=== PATIENT | female | born 1980 | race Caucasian/White ===

== ENCOUNTER → 2022-05-13 | Outpatient (CLI) | payer BC ==
--- NOTE | 2022-05-13 19:28 | US ---
EXAMINATION TYPE: US axilla LT DATE OF EXAM: 05/13/2022 COMPARISON: NONE CLINICAL HISTORY: R22.32 MASS AND LUMP, LEFT UPPER LIMB. Left axilla palpable x 1 month. Patient sta irma some where in the left axilla she had a cyst removed x 20 years ago. FINDINGS: Area of concern scanned. Subdermal lesion seen, nonvascular = 0.5 x 0.6 x 0.2 cm . This is heterogen eously hypoechoic IMPRESSION: Subdermal 0.6 cm nonvascular lesion corresponding to patient's palpable abnormality. Thi s may represent a sebaceous cyst versus pilomatricoma. Clinical correlation is recommended.
== END | disposition home or self-care (01) ==
LOC: RADUSWWP 15:53
PROVIDERS: ATTEND Obstetrics & Gynecology Obstetrics
DX: R22.32 Localized swelling, mass and lump, left upper limb (principal)

== ENCOUNTER → 2022-06-18 | Outpatient (CLI) | payer BC ==
--- NOTE | 2022-06-18 15:24 | FL ---
EXAMINATION TYPE: FL hysterosalpingography DATE OF EXAM: 06/18/2022 HISTORY: TUBES TIED 2007, CLAMPS MIGRATED, HX OF ABLASION FL TIME 1:16/ ISOVUE M300 Informed consent was obtained and all the patient's questions were answered. Preliminary demonstrates one of the patient's tubal ligation clips to reside at the L3 level on the right. In addition there is a second clip which is adjacent to the cervix on the right. This clip is also not at the tubal lev el. A speculum was introduced and the external cervical os was localize. The external cervical os was cl eansed and a Betadine solution on 3 occasions. Hysterosalpingography catheter was introduced into th e uterus and balloon insufflation device deployed. Approximately 12 cc of nonionic contrast was inje cted in a retrograde manner. The uterus demonstrates incomplete bicornuate appearance. There is contrast filling of both fallopian tubes to its midportion on the left and to its mid to distal portion on the right. There is no evide nce for contrast extravasation from both fallopian tubes indicating underlying tubal occlusion bilate rally. There is however intravasation of contrast within the myometrial vessels (mostly veins) right greater than left. There is a large cluster of draining pelvic veins within the right hemipelvis at t he level of the displaced right hemipelvic clip. Underlying vascular malformation is not excluded. Co nsider further evaluation with MRI. IMPRESSION: 1. Both right and left tubal ligation clips are displaced and not in their expected locations. Bilate ral tubal occlusion noted however. 2. As noted there is intravasation of contrast within the myometrial vessels however within the right hemipelvis there is a large cluster of enhancement which is not felt to reflect extravasation from t he right fallopian tube but rather may reflect a vascular malformation. Further evaluation with MRI i s advised.
== END | disposition home or self-care (01) ==
LOC: RADUSWWP 13:34
PROVIDERS: ATTEND Obstetrics & Gynecology Obstetrics
DX: N97.1 Female infertility of tubal origin (principal)
CPT/HCPCS: 58340; 74740; Q9967

== ENCOUNTER → 2022-08-05 | Outpatient (CLI) | payer BC ==
[2022-08-05 10:53] VITALS: BP 136/92; PULSE 84; RESP 18; TEMP 98.1
--- NOTE | 2022-08-05 14:32 | P.PAINPG ---
PQRS Measure Charge Sheet Comment: HISTORY OF PRESENT ILLNESS: 41 yr old female as a referral from Dr Bradley presents today w severe and chronic LBP x 10 mo secondary to for evaluation. Pt states pain level is at 8 /10 in intensity, constant, localized in the R lower lumbar spine where it meets the tailbone, achy/ sore in character w shooting pain towards the RLE and R foot. Pain is provoked by lifting, bending or in one position for periods of 2 hrs or more. Pain is alleviated by chiropractic treatments semi weekly and now semi monthly, meds (Cymbalta), +THC products, heat, home exercise regimen, repositioning and rest. PMH: OA PSH: LESIs (2021), Breast Reduction (2021), Umbilical Hernia Repair (2013), Tubal Ligation (2007), Addenoidectomy/ Tonsillectomy SH: Hx of tobacco use, Rare ETOH use, No illicit drug use FH: Fa- CAD. All: See list Meds: See list REVIEW OF ORGAN SYSTEMS: CONSTITUTIONAL: No fevers or chills. No recent weight loss. NEUROLOGICAL: + numbness and tingling along the distal extremities. No seizure disorders or headaches. MUSCULOSKELETAL: + pain PSYCHIATRIC: Denies current depression or suicidal thoughts. Physical Examinations : Constitutional : Cooperative , not in acute distress . Neurologic : Cranial nerve II to XII intact. No focal neurological deficits. Psychiatric : alert & oriented x 3. Matching mood & appropriate affect. Judgment & insight intact. Musculoskeletal : Cervical Spine Motor strength in the deltoid and biceps: Normal right side. Normal Left side Motor strength biceps and the wrist extensors: Normal right side . Normal left side Motor strength in the triceps muscle: Normal right side. Normal left side Deep tendon reflexes: Normal at the biceps. Normal at Brachioradialis. Normal at triceps Vertebral body tenderness to deep palpation over Cervical facet loading test: positive bilaterally Spurling test: positive bilaterally Neck distraction test: positive bilaterally Angelica sign: positive bilaterally Lumbar spine Motor strength lower extremities ,thigh and legs 5/5 Right side , 5/5 Left side Deep tendon reflexes : Normal Knee Jerk. Normal Ankle Jerk Vertebral body tenderness over L5 Lumbar facet Loading Test: positive Right / positive Left Range of motion of the lumbar spine Flexion 30 degrees, extension 10 degrees Straight Leg Raise test: Left/ Right positive at degree Vanessa test: positive right / positive left. Severe tenderness over the Sacroiliac joint on the Right / Left sides Gaenslen test: positive bilaterally Seated flexion test: positive bilaterally. Sacral spine : Severe tenderness over the Sacroiliac joint: right side / left side Range of motion: Flexion of the lumbar spine <60 degrees Range of motion: Extension of the lumbar spine <20 degrees Gaenslen's Test positive Bry's Test positive Vanessa test: positive right side / left side Thigh Thrust Test Sacral Thrust Test Imaging: MRI without contrast of the lumbar spine from 10/22/21 reviewed Assessment/ Plan : Lumbar DDD Recommendation of R TFESI L5-S1. May need a series, up to 3 within a 6mo period, for optimal pain relief. Risks, benefits of procedure discussed and patient verbalized understanding. Denies aspirin or anti- coagulant use or medical history of diabetes. Protocol for discontinuation/ continuation of medications thea procedure discussed. All questions answered. I have spent greater than 30 minutes on patient care today. Dr Allen was available by phone for the evaluation of this patient. The time was used to review the medical records including relevant urine studies and Prescription history (MAPs), review of the available imaging, evaluation and examination of the patient, coordination of care with the medical staff and if applicable referring physicians, as well as creation of the medical record Controlled Substance Measures - Controlled Substance Measures Is patient prescribed a controlled substance at discharge?: No
== END ==
LOC: PNWHC3 08-02 09:57
PROVIDERS: ATTEND Specialist
DX: M51.36 Other intervertebral disc degeneration, lumbar region (principal); M19.90 Unspecified osteoarthritis, unspecified site
CPT/HCPCS: 99211

== ENCOUNTER → 2022-09-06 | Outpatient (CLI) | payer BC ==
[2022-09-06 23:05] LABS: Basophils # (A) 0.05 X 10*3/uL (0.00-0.10); Basophils % (A) 0.7 %; Eosinophils # (A) 0.17 X 10*3/uL (0.04-0.35); Eosinophils % (A) 2.2 %; HCT 39.3 % (37.2-46.3); HGB 12.3 g/dL (12.0-15.0); Immature Grans, Automated 0.1 %; Lymphocytes # (A) 2.73 X 10*3/uL (0.90-5.00); Lymphocytes % (A) 35.9 %; MCH 28.4 pg (27.0-32.0); MCHC 31.3 g/dL (32.0-37.0); MCV 90.8 fL (80.0-97.0); Monocytes # (A) 0.39 X 10*3/uL (0.20-1.00); Monocytes % (A) 5.1 %; NRBC Per 100 WBC 0 /100 WBCS (0.0-0.0); Neutrophils # (A) 4.25 X 10*3/uL (1.80-7.70); Platelet Count 322 X 10*3/uL (140-440); RBC 4.33 X 10*6/uL (4.10-5.20); RDW 13.3 % (11.5-14.5)
[2022-09-06 23:30] LABS: Appearance,Urine Cloudy (Clear); Bilirubin,Urine Negative (Negative); Blood,Urine Moderate (Negative); Color,Urine Yellow (Yellow); Ketones,Urine Trace mg/dL (Negative); Nitrite,Urine Positive (Negative); PH, Urine 5.5 (5.0-8.0); Specific Gravity,Urine >1.035 (1.001-1.030); Urobilinogen,Urine 0.2 (0.2,1.0)
[2022-09-06 23:53] LABS: Bacteria,Urine 4+ /HPF (None Seen)
[2022-09-06 23:59] LABS: African American GFR (CKD) 129.4 (60.0-200.0); Anion Gap 12.2 mmol/L (10.00-18.00); Blood Urea Nitrogen 7.8 mg/dL (9.0-27.0); Carbon Dioxide 26.4 mmol/L (20.0-27.5); Non-African American GFR(CKD) 111.7 (60.0-200.0); Potassium 3.7 mmol/L (3.5-5.5)
== END | disposition home or self-care (01) ==
LOC: LABPAT 14:27
PROVIDERS: ATTEND Obstetrics & Gynecology Obstetrics
DX: Z01.812 Encounter for preprocedural laboratory examination (principal); N92.0 Excessive and frequent menstruation with regular cycle
CPT/HCPCS: 80051; 81001; 82565; 82947; 84520; 85025; 87086

== ENCOUNTER → 2022-09-09 | Day surgery (SDC) | payer BC ==
[~2022-09-09] MED LIST: IOPAMIDOL M200 10 ML VIAL ONE; IV FLUID CONTINUATION 1,000 ML IV ONE; LACTATED RINGERS 1,000 ML IV ONE; LACTATED RINGERS 1,000 ML IV SCH; LIDOCAINE 1% (10MG/ML) FOR IV START INTRADERMA PRN; MIDAZOLAM 2 MG/2 ML VIAL ONE; methylPREDNISolone ACETATE 80 MG/ML 1 ML VIAL ONE
[2022-09-09 13:08] VITALS: RESP 16; TEMP 98.9
--- NOTE | 2022-09-09 13:40 | P.PCN ---
Date of Procedure: 09/09/22 Procedure(s) Performed: PREOPERATIVE DIAGNOSIS: 1-Lumbar radiculopathy . 2-lumbar degenerative disc disease. POSTOPERATIVE DIAGNOSIS: Same as preoperative diagnoses. PROCEDURE 1. Transforaminal epidural steroid injection under fluoroscopic guidance at right L5-S1 level. (Fluoroscopy images stored on file in the radiology Department ) 2. Lumbar epidurogram . ANESTHESIA: Local with 1% lidocaine 3 ml , moderate sedation with intravenous Versed 2 mg . Sedation start time : 1328 . Sedation. stop time : 1337 . EBL: Minimal PROCEDURE INDICATION: The patient with low back pain and radiculopathy symptoms unresponsive to conservative treatment. PROCEDURE DESCRIPTION / TECHNIQUE: The patient was seen and identified in the preoperative area. Risks, benefits, complications, and alternatives were discussed with the patient. The patient agreed to proceed with the procedure and signed the consent. IV was started, and vital signs were stable. Patient was taken to the OR and time out was completed. The patient was placed in the prone position on procedure table and a pillow was placed under the abdomen to reduce lumbar lordosis. The lumbosacral area was prepped and draped in the usual sterile fashion. Critical pause was taken. Vital signs were closely monitored during the procedure. Conscious sedation was used during the procedure to decrease patient s anxiety. Using oblique fluoroscopy, the chin of the `Jeny dog at right L5-S1 level was identified, and the skin and deeper tissues just below was localized with 1% lidocaine. Subsequently, a 22-gauge 3.5-inch spinal needle was advanced under a tunneled view fluoroscopic guidance just underneath the chin of the `Jeny dog at the right L5-S1 Under lateral fluoroscopy, the needle was then advanced to the posterior border of the interforaminal space. After negative aspiration of CSF and blood and with no paresthesias, 1 mL Isovue 200 contrast dye was injected excellent epidurogram and outlining of the nerve root Subsequently, 3 mL of block solution containing 80 mg Depo-Medrol and 2 mL of 0.9% normal saline PF was injected. Needle was removed . At the end of the procedure, skin was cleansed, and bandages were applied. COMPLICATIONS:none DISPOSITION / PLANS: The patient was placed in a supine position and transferred to the recovery area in a stable condition for observation. There was no arik dence of lower extremity motor or sensory deficit after the procedure. Patient was discharged from the recovery room after meeting discharge criteria. Home discharge instructions were given to the patient by the staff. The patient was reexamined prior to discharge.
[2022-09-09 13:58] VITALS: BP 140/91; PULSE 83
--- NOTE | 2022-09-09 14:12 | FL ---
Intraoperative/procedural fluoroscopic services were provided. Total fluoroscopy time is 4 seconds wi th a total of 0 submitted images to PACS. Please see the operative/procedural note for further detail s.
== END ==
LOC: ORPAIN 12:49
PROVIDERS: ATTEND Specialist
DX: M51.16 Intervertebral disc disorders with radiculopathy, lumbar region (principal); Z88.0 Allergy status to penicillin; Z88.8 Allergy status to other drugs, medicaments and biological substances
CPT/HCPCS: 81025; 64483; 99152; J2250; J1040; Q9966

== ENCOUNTER 2022-09-13 07:24 | Day surgery (SDC) | payer BC ==
[2022-09-13] MEDS ORDERED: DEXAMETHASONE SOD PHOSPHATE 4 MG/ML 1 ML VIAL IV ONE (07:32)
[2022-09-13] MEDS ORDERED: SCOPOLAMINE 1 MG/72 HR PATCH TRANSDERM ONE (07:32)
[2022-09-13] MEDS ORDERED: HYDROmorphone 0.5 MG/0.5 ML SYRINGE IVP PRN (07:32)
[2022-09-13] MEDS ORDERED: ONDANSETRON 4 MG/2 ML VIAL IVP ONE (07:32)
[2022-09-13] MEDS ORDERED: LIDOCAINE 1% (10MG/ML) FOR IV START INTRADERMA PRN (07:32)
[2022-09-13] MEDS: LACTATED RINGERS 1,000 ML IV SCH (07:50)
[2022-09-13] MEDS ORDERED: MIDAZOLAM 2 MG/2 ML VIAL IVP ONE (08:11)
--- NOTE | 2022-09-13 08:36 | P.ANPRN ---
Procedure Note - Anesthesia - Nerve Block Performed Bilateral Erector Spinae Single Time Out Performed: Yes Date of Procedure: 09/13/22 Procedure Start Time: 08:11 Procedure Stop Time: 08:20 Location of Patient: PreOp Indication: Requested by Surgeon Specifically requested for management of pain by DrCesar: Thania Wells Sedation Type: Sedate with meaningful contact maintained Preparation: Sterile Prep Position: Prone Needle Types: Pajunk Needle Gauge: 21 Ultrasound used to visualize needle placement: Yes Ultrasound used to observe medication spread: Yes Injectate: 0.5% Ropivacaine (see comment for volume) (15 ml +15 ml NS + 4mg Dexamethasone per side) Blood Aspirated: No Pain Paresthesia on Injection Noted: No Resistance on Injection: Normal Image Stored and Saved: Yes Events: Uneventful and Well Tolerated
[2022-09-13] MEDS ORDERED: GLYCOPYRROLATE 0.2 MG/ML 2 ML VIAL ONE (09:20)
[2022-09-13] MEDS ORDERED: NEOSTIGMINE 1 MG/ML 10 ML VIAL ONE (09:20)
[2022-09-13] MEDS ORDERED: MIDAZOLAM 2 MG/2 ML VIAL ONE (09:20)
[2022-09-13] MEDS ORDERED: SODIUM CHLORIDE 0.9% (PF) 10 ML VIAL ONE (09:20)
[2022-09-13] MEDS ORDERED: diphenhydrAMINE 50 MG/ML 1 ML VIAL ONE (09:20)
[2022-09-13] MEDS ORDERED: PROPOFOL 10 MG/ML 20 ML VIAL IV ONE (09:20)
[2022-09-13] MEDS ORDERED: DEXAMETHASONE SOD PHOSPHATE 4 MG/ML 1 ML VIAL ONE (09:20)
[2022-09-13] MEDS ORDERED: ROCURONIUM 10 MG/ML (5 ML VIAL) IV ONE (09:20)
[2022-09-13] MEDS ORDERED: HYDROmorphone (PF) 1 MG/ML ONE (09:20)
[2022-09-13] MEDS ORDERED: KETAMINE 10 MG/ML 20 ML VIAL ONE (09:20)
[2022-09-13] MEDS ORDERED: .MORPHINE SULFATE (INJ) 10 MG/ML SYRINGE ONE (09:20)
[2022-09-13] MEDS ORDERED: SUCCINYLCHOLINE CHLORIDE 200 MG/10 ML VIAL IV ONE (09:20)
[2022-09-13] MEDS ORDERED: ROPIVACAINE 5 MG/ML 30 ML VIAL ONE (09:20)
[2022-09-13] MEDS ORDERED: BUPIVACAINE (PF) 0.25% 30 ML VIAL SQ ONE ×2 (09:35)
[2022-09-13] MEDS ORDERED: LACTATED RINGERS 1,000 ML IV ONE (11:15)
[2022-09-13] MEDS ORDERED: Acetaminophen-Codeine 300-30mg TAB PO PRN ×2 (11:20)
[2022-09-13] MEDS ORDERED: SIMETHICONE 80 MG CHEWABLE PO PRN (11:20)
[2022-09-13] MEDS ORDERED: ACETAMINOPHEN IV (For NPO) 1,000 MG in EMPTY BAG 1 BAG IVPB ONE (11:20)
--- NOTE | 2022-09-13 11:47 | P.OP ---
Date of Procedure: 09/13/22 Preoperative Diagnosis: Pelvic pain, Failed EA, heavy menstrual bleeding, dysmenorrhea Postoperative Diagnosis: same plus suspected adenomyosis Procedure(s) Performed: Robotic assist vaginal hysterectomy, bilateral salpingectomy, diagnostic cystoscopy Anesthesia: DC Surgeon: Thania Wells Breaker Operator #1: Kaitlyn Hammond Estimated Blood Loss (ml): 50 IV fluids (ml): 800 Urine output (ml): 300 Pathology: other (uterus cervix b/l fallopian tubes) Disposition: PACU Indications for Procedure: 42 yo with continued complaints of increasing back pain/pelvic pain. She had an XRAY done with her chiropractor and migration of the filshie clip is appreciated. she is desirous of definitive treatment with hysterectomy. Operative Findings: Globular uterus consistent with adenomyosis is appreciated. Bilateral ovaries appeared normal. One Filshie clip was appreciated anterior to the uterus within filmy adhesions anterior to the bladder. After an extensive search the second Filshie clip was unable to be found, bowel/omentum was visualized with no defects appreciated. After hysterotomy was completed cystoscopy was performed and normal in nature. Both ureteral orifices noted to be spilling clear yellow urine uterus was noted to be intact and complete survey. Bladder bubble was appreciated. Description of Procedure: Patient was taken to the operating suite where general anesthesia was obtained without difficulty by the anesthesia department. She was prepped and draped in the normal sterile fashion in the dorsal lithotomy position. Siu catheter was placed under sterile technique. The anterior lip of the cervix is visualized and grasped with a single-tooth tenaculum and V care uterine manipulator was advanced into the uterus after serial dilation of the cervix. The cervical cap was then placed snugly against the cervix the balloon was insufflated. All inserts were then removed from the patient's vaginal vault. Attention was then turned the patient's abdomen where partially 2 finger breaths above the umbilicus a small skin incision is made. Through this incision the various needles placed. Once the Veress needle was deemed to be in the appropriate p osition with a drop of CO2 pressure with insufflation of CO2 gas CO2 insufflation was allowed to occur. An 8 mm trocar and sleeve with a milk processing worker scope in place was placed through the skin incision and toward the pneumoperitoneum. The trocar was removed with the sheath remaining in place, at this time the additional port sites were placed at 10 cm lateral and 3cm inferior midline port these are 8 mm ports and placed under direct visualization. In the left upper quadrant a 12 mm trocar and sleeve is placed under direct visualization. At this time the da Cady robot was docked in the usual fashion and instruments are placed. In the right operative arm the monopolar scissors is placed, and the left operative arm the bipolar forceps is placed. Attention was then turned to the patient's left fallopian tube which was grasped coagulated and transected. This continued through the broad and toward the uterus the uterine ovarian ligament was then coagulated distally and proximally and divided. When the uterus elevated the Filshie clip was appreciated within filmy adhesions of the bladder this was taken out of the abdomen without difficulty. Attention was then turned to the patient's left round ligament which was coagulated distally and proximal plane divided. The bladder flap from the left was then created using sharp and blunt dissection. The ascending branch the uterine artery was then visualized coagulated and transected. Hemostasis was appreciated. Attention was then turned the patient's right fallopian tube which was grasped and mesosalpinx was coagulated and transected. This continued toward the uterine ovarian ligament which was coagulated distally and proximally and divided. The round ligament was visualized coagulated and transected. The bladder flap from the right was then created using sharp and blunt dissection. The ascending branch the uterine artery was visualized coagulated and transected. A Ray-Owen was then placed into the abdomen and the bladder was further dissected away from the operating field. The Ray-Owen was then removed. Bleeding was noted on the right-hand side of the uterus therefore cautery she was to obtain hemostasis. At this time the only remaining attachment was a vaginal attachment therefore colpotomy incision was made and circumference of fashion. The uterus was then delivered through the vaginal opening. The pelvis then copiously irrigated. Any points of bleeding were made hemostatic with the Bovie. The vaginal cuff was then closed with 0 Vicryl in multiple [id number]-ce-kfyvo sutures. Afterwards hemostasis was appreciated. FloSeal was placed along the vaginal cuff. Extensive search was then performed in the upper abdomen for this placed Filshie clip. No evidence of Filshie clip was appreciated after an extensive search. At this time the vaginal cuff was inspected hemostasis was appreciated. Both ovaries were noted to be normal in nature. All inserts were then removed from the patient's abdomen. Attention was then turned the patient's Siu catheter which was removed without difficulty. The cystoscope was performed. The cystoscope was placed through the urethra and toward the bladder bladder bubble was appreciated a complete survey of the bladder revealed normal anatomy both ureteral orifices were noted to be spilling clear yellow urine. The cystoscope was removed without difficulty and the Siu catheter was replaced. The vaginal vault cleared of any clots and debris. Hemostasis was noted. Attention was then turned the patient's abdomen where the skin incisions were closed with 4-0 Vicryl in a septic fashion. Steri-Strips and sterile dressings were applied. All counts were noted be correct 2 at the end of the procedure. Patient tolerated procedure well and was taken the recovery room awake in stable condition.
[2022-09-13] MEDS ORDERED: IBUPROFEN IV 800 MG in SODIUM CHLORIDE 0.9% 250 ML IV ONE (14:15)
[2022-09-13] MEDS: SENNOSIDES-DOCUSATE SODIUM 1 EACH TAB PO SCH (19:51)
[2022-09-13] MEDS ORDERED: ONDANSETRON 4 MG/2 ML VIAL IVP PRN (19:56)
[2022-09-13 20:22] VITALS: RESP 16
[2022-09-13] MEDS ORDERED: CYCLOBENZAPRINE 10 MG TAB PO SCH (21:00)
[2022-09-14] MEDS: IBUPROFEN 600 MG TAB PO PRN ×2 (01:07→08:02)
[2022-09-14 08:00] LABS: Basophils % (A) 0 %; Eosinophils % (A) 0 %; HCT 37.6 % (34.0-46.0); HGB 12.3 gm/dL (11.4-16.0); Lymphocytes # (A) 2.8 k/uL (1.0-4.8); Lymphocytes % (A) 26 %; MCH 27.9 pg (25.0-35.0); MCHC 32.7 g/dL (31.0-37.0); MCV 85.3 fL (80.0-100.0); Mean Platelet Volume 7.1; Monocytes # (A) 0.7 k/uL (0-1.0); Monocytes % (A) 6 %; Neutrophils # (A) 7.1 k/uL (1.3-7.7); Neutrophils % (A) 66 %; Platelet Count 333 k/uL (150-450); RDW 13.3 % (11.5-15.5); WBC 10.8 k/uL (3.8-10.6)
[2022-09-14 08:23] VITALS: BP 127/81; PULSE 92; TEMP 97.9
--- NOTE | 2022-09-14 08:46 | P.DS ---
Providers Date of admission: 09/13/2022 Expected date of discharge: 09/14/22 Attending physician: Thania Wells Primary care physician: Shan Drake - Discharge Diagnosis(es) (1) Pelvic pain Current Visit: Yes Status: Acute (2) Menorrhagia Current Visit: Yes Status: Acute (3) Dysmenorrhea Current Visit: Yes Status: Acute Hospital Course: this is a 42-year-old female with prior complaints of heavy menstrual bleeding and dysmenorrhea failed ablation. In addition patient had noted increasing pelvic/low back pain over the last year. Patient has seen multiple physicians for this and on imaging the Filshie clip she had placed with her ablation were noted to be migrated. Patient was concerned this could be causing increased pain. Given failed ablation with menorrhagia and dysmenorrhea patient elected definitive treatment. For full details on this patient please see the dictated history and physical. Patient underwent robotic-assisted vaginal hysterectomy with bilateral salpingectomy, diagnostic cystoscopy. Surgery was performed without difficulty, one of the Filshie clips was noted to be on the bladder the other was unable to be found after an extensive search of the abdominal cavity. For full details on the surgery please see the operative report. Patient's postoperative course has been uneventful. On this postoperative day #1 she is ambulating and voiding without difficulty. She is tolerating a regular diet without nausea or vomiting. She states her pain is well-controlled with oral ibuprofen and Tylenol. She denies vaginal bleeding. She does wish discharge home. Patient Condition at Discharge: Good Plan - Discharge Summary Discharge Rx Participant: No New Discharge Prescriptions: No Action DULoxetine HCL [Cymbalta] 120 mg PO DAILY Cyclobenzaprine [Flexeril] 10 mg PO HS Acetaminophen Tab [Tylenol] 325 mg PO Q4H Ibuprofen [Motrin Ib] 200 mg PO Q8H Discharge Medication List Acetaminophen Tab [Tylenol] 325 mg PO Q4H 09/07/22 [History] Cyclobenzaprine [Flexeril] 10 mg PO HS 09/07/22 [History] DULoxetine HCL [Cymbalta] 120 mg PO DAILY 09/07/22 [History] Ibuprofen [Motrin Ib] 200 mg PO Q8H 09/07/22 [History] Follow up Appointment(s)/Referral(s): Thania Wells DO [Doctor of Osteopathic Medicine] - 2 Weeks Patient Instructions/Handouts: Laparoscopic Hysterectomy (DC), Laparoscopic Hysterectomy (GEN) Activity/Diet/Wound Care/Special Instructions: patient is instructed on wound care. The dressing can come off in the shower with the Steri-Strips remaining in place for 10-14 days. Patient is counseled on bleeding precautions postoperatively. No tub baths or intercourse until 8 weeks postoperatively. Patient is encouraged to use [id number] ibuprofen 6 her milligrams or 3 tablets every 6 hours as needed for pain. Patient is to call the office for a routine postoperative check in 2 weeks. Should the patient have any concerns prior to this appointment she is urged to call the office and be seen prior. Discharge Disposition: HOME SELF-CARE
--- NOTE | 2022-09-14 08:46 | P.HPOB ---
History of Present Illness H&P Date: 09/13/22 Chief Complaint: pelvic pain failed endometrial ablation, HMB, dysmenorrhea This is a 42 yo female with prior h/o H DC EA, LTL with filshie clips. Patient is status post endometrial ablation versus ago and she continues to have heavy menstrual bleeding with dysmenorrhea. She has been struggling with increasing pelvic pain/low back pain over the last year. She states in the work up for her back pain a chiropractor did an xray revealing the filshie clips to not be in the expected area, high in the pelvis. She subsequently had a HSG revealing migration of the clips as well. The fallopian tubes appeared blocked but the radiologist also told her they were possibly open. She is very desirous of definitive treatment given her increasing pain. Menses are noted to be regular every month with a heavy flow and increasing clots. Patient notes increasing dysmenorrhea. Patient is not desirous of more children and is concerned with migration of the Filshie clips she may get . Review of Systems Constitutional: Denies chills, Denies fatigue, Denies fever Ears, nose, mouth and throat: Denies headache Cardiovascular: Denies leg edema Respiratory: Denies dyspnea Gastrointestinal: Denies constipation, Denies diarrhea, Denies nausea, Denies vomiting Genitourinary: Denies Menstruation: Reports amenorrhea Past Medical History Past Medical History: Unable to Obtain Additional Past Medical History / Comment(s): back pain sciatica History of Any Multi-Drug Resistant Organisms: Unobtainable Past Surgical History: Unable to Obtain Additional Past Surgical History / Comment(s): breast reduction, tubes in ears, umbilical herniz Past Anesthesia/Blood Transfusion Reactions: Unable to Obtain Past Psychological History: Unable to Obtain Smoking Status: Unknown if ever smoked Medications and Allergies Home Medications Medication Instructions Recorded Confirmed Type Acetaminophen Tab [Tylenol] 325 mg PO Q4H 09/07/22 09/09/22 History Cyclobenzaprine [Flexeril] 10 mg PO HS 09/07/22 09/09/22 History DULoxetine HCL [Cymbalta] 120 mg PO DAILY 09/07/22 09/09/22 History Ibuprofen [Motrin Ib] 200 mg PO Q8H 09/07/22 09/09/22 History Allergies Allergy/AdvReac Type Severity Reaction Status Date / Time Penicillins Allergy Rash/Hives Verified 09/13/22 07:36 fentanyl AdvReac Vomiting Verified 09/13/22 07:36 Exam Osteopathic Statement: *. No significant issues noted on an osteopathic structural exam other than those noted in the History and Physical/Consult. Vital Signs Temp Pulse Resp BP Pulse Ox 09/13/22 07:39 97 F L 103 H 14 171/92 96 Intake and Output 09/12/22 09/13/22 09/13/22 22:59 06:59 14:59 Other: Weight 77.8 kg targeted physical exam is done ont his date. in general this is a well nourished well developed female in no acute distress. Heart has a regular rate and rhythm breathing apppears non labored abdomen is soft and non tender. external genitalia is normal for age, uterus is normal in size and mobile, no adnexal masses are appreciated. - OBG Physical Exam Abdomen: bowel sounds normal Vulva: both: normal Vagina: normal in nature pink and well rugated Uterus: normal size Adnexa: both: normal Anus/Rectum: normal perianal skin Assessment and Plan (1) Pelvic pain Narrative/Plan: migration of the filshie clip on imaging Current Visit: Yes Status: Acute Code(s): R10.2 - PELVIC AND PERINEAL PAIN SNOMED Code(s): 93306182 (2) Menorrhagia Narrative/Plan: failed EA Current Visit: Yes Status: Acute Code(s): N92.0 - EXCESSIVE AND FREQUENT MENSTRUATION WITH REGULAR CYCLE SNOMED Code(s): 395752549 (3) Dysmenorrhea Current Visit: Yes Status: Acute Code(s): N94.6 - DYSMENORRHEA, UNSPECIFIED SNOMED Code(s): 877052216 Plan: 42yo female with increasing complaints of pelvic pain, heavy menstrual bleeding and dysmenorrhea. Patient did have an endometrial ablation in the past, no change in menstrual cycles. Upon imaging migration of filshie clips are appreciated, possible concern for cause of her pain. she is very desirous of definitive treatment with RAVH/bilateral salpingectomy/DC , given her failed ablation heavy menstrual bleeding and increasing dysmenorrhea. Patient is concerned about migration of the Filshie clips in addition. surgery is reviewed in detail and all questions are answered. Risks are reviewed including but not limited to infection, bleeding, damage to bladder, bowel or ureteric injury. Patient states understanding and wishes to proceed. anesthesia has been into see the patient and will be taken momentarily to the operating suite.
[2022-09-14] MEDS ORDERED: CYCLOBENZAPRINE 10 MG TAB PO SCH (09:00)
[2022-09-14] MEDS ORDERED: DULoxetine HCL 60 MG CAPSULE.DR PO SCH (09:00)
[2022-09-14] MEDS: SENNOSIDES-DOCUSATE SODIUM 1 EACH TAB PO SCH (09:28)
[2022-09-14] MEDS: LACTATED RINGERS 1,000 ML IV SCH (09:29)
[2022-09-14] MEDS ORDERED: ACETAMINOPHEN TAB 325 MG TAB PO PRN (11:24)
== END 2022-09-14 10:00 | disposition home or self-care (01) ==
LOC: OR 07:24 → 4FBP 11:11 → OR 09-14 10:00
PROVIDERS: ATTEND Obstetrics & Gynecology Obstetrics
DX: N80.03 Adenomyosis of the uterus (principal); N92.0 Excessive and frequent menstruation with regular cycle; N94.6 Dysmenorrhea, unspecified; M54.50 Low back pain, unspecified; Z98.890 Other specified postprocedural states; Z79.1 Long term (current) use of non-steroidal anti-inflammatories (NSAID); Z88.0 Allergy status to penicillin; Z88.5 Allergy status to narcotic agent; Z79.899 Other long term (current) drug therapy
CPT/HCPCS: 58554; 81025; 64461; 86900; 86901; 85025; 86850; 88307; C1762; J2250; J0330; J1200; J1100; J2710; J2270; J0690; J2405; J1170 ×2; J2795; J1741; J2704

== ENCOUNTER → 2022-11-08 | Outpatient (CLI) | payer BC ==
[2022-11-08 08:30] VITALS: BP 156/108; PULSE 77; RESP 18; TEMP 98.1
--- NOTE | 2022-11-08 14:38 | P.PAINPG ---
PQRS Measure Charge Sheet Comment: A 42 yr old female with a history of severe and chronic LBP secondary to lumbar DDD and spondylosis with facet arthropathy without myelopathy presents today for evaluation s/p R facet block of the medial branches L4-L5, L5-S1 #1 . Pt states she experienced 100% pain relief x 4 days s/p procedure. Pain level is provoked at 10/10 in intensity, constant, localized in the lumbar spine, stabbing, sharp in character w shooting towards the R buttocks and LE. Pain is provoked by walking for periods of 20 min or more. Pain is alleviated with PT 1 yr ago, home exercise daily, chiropractic treatments twice weekly last in Aug 2022, heat, medications (Ibu), repositioning and rest. Interventional pain procedures completed include R MBB L3-L5 x1 Patient is currently on Ibu Patient denies any side effects of the medication(s), denies excessive drowsiness or sleepiness, denies suicidal ideation and reports that the current pain medication is helping to control the pain and improve activities of daily living. Patient denies any motor or sensory deficits. Patient denies any fever or night sweats, denies any change in the bowel movements or urination. Physical Examination: -Constitutional: Cooperative. Not in acute distress . - Neurologic: Cranial nerve II to XII intact. No focal neurological deficits. - Psychatric: Alert & oriented x 3. Matching mood & appropriate affect. Judgment and insight intact. - Musculoskeletal: Cervical spine: Muscle bulk/ tone/ strength in the bilateral upper extremities normal Vertebral body tenderness to palpation over Spurling test positive Distraction test positive Facet loading test positive TTP Thoracic spine Muscle bulk / tone/ strength in the bilateral paraspinal muscles normal Vertebral body tender to palpation over Facet loading test positive TTP Lumbar spine: Motor bulk/ tone/ strength lower extremities , thigh and legs : 5/5 Deep tendon reflexes : Normal Knee Jerk. Normal Ankle Jerk . Vertebral body tenderness to palpation over Lumbar Facet Loading Test positive TTP over R L4-L5, L5-S1 facets Straight Leg Raise: positive at 30 degrees right side/ left side Gaenslen's Test positive Sacral spine : Severe tenderness over the Sacroiliac joint: right side / left side Range of motion: Flexion of the lumbar spine <60 degrees Range of motion: Extension of the lumbar spine <20 degrees Gaenslen's Test positive right side / left side Vanessa test: positive right side / left side Thigh Thrust Test positive right side / left side Sacral Thrust Test positive right side / left side Assessment and plan: Chronic LBP secondary to lumbar DDD, spondylosis with facet arthropathy without myelopathy Recommendation of R facet block of the medial branches L4-L5, L5-S1 #2. May need a series of injections, up until RFA, for optimal pain relief. Risks, benefits of procedure discussed and pt verbalized understanding. Admits to anticoagulant use or medical history of diabetes. Protocol for discontinuation/ continuation of medications thea procedure discussed. Had lengthy discussion about pt's elevated blood pressure and to seek medical assistance. Dangers of elevated BP discussed and pt acknowledged understanding. All questions answered. I have spent less than 30 minutes on patient care today. Dr Allen was available by phone for the evaluation of this patient. The time was used to review the medical records including relevant urine studies and Prescription history (MAPs), review of the available imaging, evaluation and examination of the patient, coordination of care with the medical staff and if applicable referring physicians, as well as creation of the medical record PQRS Narrative: Hx Alcohol Use (MH) No Home Medications: Ambulatory Orders Acetaminophen Tab [Tylenol] 325 mg PO Q4H PRN 09/07/22 DULoxetine HCL [Cymbalta] 120 mg PO DAILY 09/07/22 Ibuprofen [Motrin Ib] 60 - 800 mg PO Q8H 09/07/22 Pregabalin [Lyrica] 50 mg PO TID 10/26/22 Controlled Substance Measures - Controlled Substance Measures Is patient prescribed a controlled substance at discharge?: No
== END ==
LOC: PNWHC3 07:21
PROVIDERS: ATTEND Anesthesiology
DX: M51.36 Other intervertebral disc degeneration, lumbar region (principal); M47.816 Spondylosis without myelopathy or radiculopathy, lumbar region; G89.29 Other chronic pain; Z88.0 Allergy status to penicillin; Z88.6 Allergy status to analgesic agent
CPT/HCPCS: 99211

== ENCOUNTER 2022-12-03 11:13 | Day surgery (SDC) | payer BC ==
[~2022-12-03 11:13] MED LIST changes: -IOPAMIDOL M200 10 ML VIAL ONE; -IV FLUID CONTINUATION 1,000 ML IV ONE; -LACTATED RINGERS 1,000 ML IV ONE; -MIDAZOLAM 2 MG/2 ML VIAL ONE; -methylPREDNISolone ACETATE 80 MG/ML 1 ML VIAL ONE
[2022-12-03 11:43] VITALS: RESP 16; TEMP 97.4
[2022-12-03] MEDS ORDERED: methylPREDNISolone ACETATE 40 MG/ML 1 ML VIAL ONE (12:44)
[2022-12-03] MEDS ORDERED: ROPIVACAINE 5 MG/ML 20 ML AMPULE ONE (12:44)
[2022-12-03] MEDS ORDERED: MIDAZOLAM 2 MG/2 ML VIAL ONE (12:48)
--- NOTE | 2022-12-03 12:58 | P.PCN ---
Date of Procedure: 12/03/22 Procedure(s) Performed: PREOPERATIVE DIAGNOSIS : 1- Lumbar spondylosis with Facet Arthropathy without myelopathy . 2- Lumber degenerative disc disease POSTOPERATIVE DIAGNOSIS: 1- Lumbar spondylosis with Facet Arthropathy without myelopathy . 2- Lumber degenerative disc disease PROCEDURE: Diagnostic Right L3 , L4 , and L5 medial branch block under fluoroscopy guidance(fluoroscopy images available in the radiology Department ) ( To target the facet joint between right L4-5 , and L5-S1 )#2nd ANESTHESIA:, Monitored anesthesia care as per anesthesia department. EBL: Minimal COMPLICATION: None PROCEDURE INDICATION: Chronic low back pain secondary to Facet arthropathy unresponsive to conservative treatment. PROCEDURE DESCRIPTION: the patient was seen and identified in the preop holding area , risks and benefits and possible complications of the procedure and alternative were discussed with the patient, and the patient agreed to proceed with the procedure and signed the consent and vital signs monitored during the procedure and fluoroscopy was used to maximize the benefit and accuracy of the needle placement, and sedation was given to decrease patient anxiety, patient was taken to the procedure room and placed in prone position vital signs monitored in the back prepped with chlorhexidine X3 then under strict sterile technique using a right oblique fluoroscopy ,the junction of the transverse process and the superior articulating process of the right L3 , L4 , and L5 vertebra which corresponding to the fluoroscopy image of the eye of the Eusebio dog on the block side for the medial branches and subsequently , after local infiltration of skin and subcu tissuies with Ropivacaine 0.5 % , one mL at each level ,then 22-gauge Quincke-type needles , 3 needle was used , each one of them placed at the junction of the base of the transverse process and the superior articular process at the appropriate level, and the needle was advanced until the periosteum contacted, needle placement confirmed with AP oblique and lateral view and after appropriate needle placement confirmed, and after negative aspiration for heme and CSF and there was no paresthesia 1-1/2 mL of Ropivacaine 0.5% mixed with 20 mg Depo-Medrol , then half mL injected at each level after negative aspiration the needle subsequently removed . At the end of the procedure and the needles removed and a bandage applied after the skin was cleaned the cleaning solution patient taken to recovery room in stable condition and monitors in the recovery room for 20-30 minutes and discharged home in stable condition after discharge criteria met and patient will follow up with the pain clinic in 2-4 weeks
[2022-12-03] MEDS ORDERED: IV FLUID CONTINUATION 1,000 ML IV ONE (13:02)
--- NOTE | 2022-12-03 13:09 | FL ---
Intraoperative/procedural fluoroscopic services were provided. Total fluoroscopy time is 3 seconds wi th a total of 2 submitted images to PACS. Please see the operative/procedural note for further detail s. DAP: 0.19982
[2022-12-03 13:22] VITALS: BP 121/81; PULSE 86
== END 2022-12-03 13:33 | disposition home or self-care (01) ==
LOC: ORPAIN 11:13
PROVIDERS: ATTEND Specialist
DX: M51.36 Other intervertebral disc degeneration, lumbar region (principal); M47.816 Spondylosis without myelopathy or radiculopathy, lumbar region; G89.29 Other chronic pain; I10 Essential (primary) hypertension; Z87.891 Personal history of nicotine dependence; Z87.19 Personal history of other diseases of the digestive system; Z79.1 Long term (current) use of non-steroidal anti-inflammatories (NSAID); Z79.899 Other long term (current) drug therapy; Z88.0 Allergy status to penicillin; Z88.5 Allergy status to narcotic agent
CPT/HCPCS: 64493; 64494; J2250; J1030; J2795

== ENCOUNTER → 2022-12-20 | Outpatient (CLI) | payer BC ==
[2022-12-20 09:00] VITALS: BP 108/70; PULSE 82; RESP 18; TEMP 98.6
--- NOTE | 2022-12-20 15:13 | P.PAINPG ---
PQRS Measure Charge Sheet Comment: A 42 yr old female with a history of severe and chronic LBP secondary to lumbar DDD and spondylosis with facet arthropathy without myelopathy presents today for evaluation s/p R MBB L3-L5. Pt states she experienced 90% pain relief x 1 wks s/p procedure. Pain level is provoked at 6 /10 in intensity, constant, localized in the R lumbar spine, stabbing in character w shooting towards the RLE. Pain is provoked by walking for periods of 20 min or more. Pain is alleviated with PT x 6 wks in 2021, chiropractic treatments semi monthly since February 2022, heat, meds, repositioning and rest. Interventional pain procedures completed include R MBB L3-L5 x2 Patient is currently on Ibu Patient denies any side effects of the medication(s), denies excessive drowsiness or sleepiness, denies suicidal ideation and reports that the current pain medication is helping to control the pain and improve activities of daily living. Patient denies any motor or sensory deficits. Patient denies any fever or night sweats, denies any change in the bowel movements or urination. Physical Examination: -Constitutional: Cooperative. Not in acute distress . - Neurologic: Cranial nerve II to XII intact. No focal neurological deficits. - Psychatric: Alert & oriented x 3. Matching mood & appropriate affect. Judgment and insight intact. - Musculoskeletal: Cervical spine: Muscle bulk/ tone/ strength in the bilateral upper extremities normal Vertebral body tenderness to palpation over Spurling test positive Distraction test positive Facet loading test positive TTP Thoracic spine Muscle bulk / tone/ strength in the bilateral paraspinal muscles normal Vertebral body tender to palpation over Facet loading test positive TTP Lumbar spine: Motor bulk/ tone/ strength lower extremities , thigh and legs : 5/5 Deep tendon reflexes : Normal Knee Jerk. Normal Ankle Jerk . Vertebral body tenderness to palpation over Lumbar Facet Loading Test positive TTP over R L4-L5, L5-S1 facets Straight Leg Raise: positive at 30 degrees right side/ left side Gaenslen's Test positive Sacral spine : Severe tenderness over the Sacroiliac joint: right side / left side Range of motion: Flexion of the lumbar spine <60 degrees Range of motion: Extension of the lumbar spine <20 degrees Gaenslen's Test positive right side / left side Vanessa test: positive right side / left side Thigh Thrust Test positive right side / left side Sacral Thrust Test positive right side / left side Assessment and plan: Chronic LBP secondary to lumbar DDD, spondylosis with facet arthropathy without myelopathy Recommendation of R RFA L4-L5, L5-S1. Pt exhibited sufficient and substantial pain relief s/p procedures. Risks, benefits of procedure discussed and pt verbalized understanding. Admits to anticoagulant use or medical history of diabetes. Protocol for discontinuation/ continuation of medications thea procedure discussed. All questions answered. I have spent less than 30 minutes on patient care today. Dr Allen was available by phone for the evaluation of this patient. The time was used to review the medical records including relevant urine studies and Prescription history (MAPs), review of the available imaging, evaluation and examination of the patient, coordination of care with the medical staff and if applicable referring physicians, as well as creation of the medical record PQRS Narrative: Hx Alcohol Use (MH) No Home Medications: Ambulatory Orders DULoxetine HCL [Cymbalta] 120 mg PO QAM 09/07/22 Ibuprofen [Motrin Ib] 600 mg PO Q8H PRN 09/07/22 Pregabalin [Lyrica] 50 mg PO TID 10/26/22 amLODIPine [Norvasc] 5 mg PO HS 11/30/22 Controlled Substance Measures - Controlled Substance Measures Is patient prescribed a controlled substance at discharge?: No
== END ==
LOC: PNWHC3 08:24
PROVIDERS: ATTEND Specialist
DX: M51.36 Other intervertebral disc degeneration, lumbar region (principal); M47.816 Spondylosis without myelopathy or radiculopathy, lumbar region; G89.29 Other chronic pain; Z88.6 Allergy status to analgesic agent; Z88.0 Allergy status to penicillin
CPT/HCPCS: 99211

== ENCOUNTER 2023-01-21 06:11 | Day surgery (SDC) | payer BC ==
[2023-01-20 10:44] VITALS: BMI 32.1
[2023-01-21 06:38] VITALS: RESP 16; TEMP 97
[2023-01-21] MEDS ORDERED: MIDAZOLAM 2 MG/2 ML VIAL ONE (06:54)
[2023-01-21] MEDS ORDERED: methylPREDNISolone ACETATE 40 MG/ML 1 ML VIAL ONE (06:54)
[2023-01-21] MEDS ORDERED: ROPIVACAINE 5 MG/ML 20 ML AMPULE ONE (06:54)
--- NOTE | 2023-01-21 07:13 | P.PCN ---
Date of Procedure: 01/21/23 Procedure(s) Performed: PREOPERATIVE DIAGNOSIS: 1-Lumbar Spondylosis with Facet Arthropathy without myelopathy. 2- Lumber degenerative disc disease. POSTOPERATIVE DIAGNOSIS: 1- Lumbar Spondylosis with Facet Arthropathy without myelopathy. 2- Lumber degenerative disc disease. PROCEDURES : Right Radiofrequency thermocoagulation, L3 , L4 , and L5 medial branch, with fluoroscopic guidance (fluoroscopy images available in the radiology department) ( to denervate the facet joint at Right L4-5 ,and L5-S1 levels ). ANESTHESIA: Monitored anesthesia care as per anesthesia department . EBL: Minimal PROCEDURE INDICATION: The patient with low back pain secondary to lumbar facet arthropathy who had more than 80% relief of her pain with previous diagnostic lumbar medial branch block with bupivacaine. PROCEDURE DESCRIPTION / TECHNIQUE: The patient was seen and identified in the preoperative area. Risks, benefits, complications, including but not limited to risk of infection ,bleeding , allergic reactions to the medications and no co mplete pain releife , and alternatives were discussed with the patient, the patient agreed to proceed with the procedure and signed the consent. IV was started. Vital signs remained stable throughout the procedure. Patient was taken to the OR and time out was completed. The patient was placed in the prone position on the procedure table. The lumber area was prepped and draped in the usual sterile fashion. . Vital signs were closely monitored during the procedure .IV sedation was used during the procedure to decrease patients anxiety. Using AP and then oblique fluoroscopy, the ``eye of the Eusebio dog corresponding to the connection between the superior and transverse articular processes of right L3, L4, and L5 were identified, marked, and localized with 1% lidocaine. Subsequently, a 18 -ze radiofrequency cannula with a 10- mm active tip was advanced guided by fluoroscopy to each of the``eyes of the Eusebio dog at right L3, L4, and L5. Each site then underwent sensory testing at 50 Hz and 0 to 1 volt and motor testing at 2.5 Hz and 0 to 3 volt with local stimulation, but no radicular symptoms down the legs. Thereafter each sites underwent radiofrequency thermocoagulation at 80 degrees celsius for 90 seconds after injecting 0.5 ml of PF Ropivacaine 1ml, then after the thermocoagulation done , 1 ml of the block solution containing Depo-Medrol 40 mg and 3 ml of Ropivacaine 0.5% was injected at the right L3 , L4 , and L5 , levels after negative aspiration of CSF and blood and with no paresthesias. Cannulas were retracted while injecting lidocaine 1% until the needle is out. . At the end of the procedure, the skin was cleansed and bandages were applied. COMPLICATIONS: No acute complications. DISPOSITION / PLANS: The patient was placed in a supine position and transferred to the recovery area in a stable condition for observation and was discharged from the recovery room after meeting discharge criteria. Home discharge instructions given to the patient by the staff. The patient was reexamined prior to discharge. The patient will schedule a follow up in the clinic in 2-4 weeks.
[2023-01-21] MEDS ORDERED: LACTATED RINGERS 1,000 ML IV ONE (07:17)
--- NOTE | 2023-01-21 07:32 | FL ---
EXAMINATION TYPE: FL guided pain mgmt statistic DATE OF EXAM: 01/21/2023 CLINICAL HISTORY: Low back pain. TECHNIQUE: Fluoroscopy. COMPARISON: None. FINDINGS: Fluoroscopic guidance was provided during pain relief procedure performed by Dr. Allen . A total of 14.8 seconds of fluoroscopic time was utilized during the procedure and 3 spot images a re acquired. Images acquired shows needle localization at several spots in the lower lumbar spine. IMPRESSION: As Above. TOTAL DAP = 0.075
[2023-01-21 07:34] VITALS: BP 128/76; PULSE 86
== END 2023-01-21 07:54 | disposition home or self-care (01) ==
LOC: ORPAIN 06:11
PROVIDERS: ATTEND Specialist
DX: M51.36 Other intervertebral disc degeneration, lumbar region (principal); M47.816 Spondylosis without myelopathy or radiculopathy, lumbar region; I10 Essential (primary) hypertension; F12.90 Cannabis use, unspecified, uncomplicated; Z79.1 Long term (current) use of non-steroidal anti-inflammatories (NSAID); Z79.899 Other long term (current) drug therapy; Z88.5 Allergy status to narcotic agent; Z88.0 Allergy status to penicillin
CPT/HCPCS: 64635; 64636; J2250; J1030; J2795

== ENCOUNTER 2023-02-15 10:01 | Day surgery (SDC) | payer BC ==
[2023-02-11 13:04] VITALS: BMI 32.1
[2023-02-15 10:33] VITALS: RESP 16; TEMP 97.6
[2023-02-15] MEDS ORDERED: ONDANSETRON 4 MG/2 ML VIAL IVP ONE (10:35)
[2023-02-15] MEDS ORDERED: ONDANSETRON 4 MG/2 ML VIAL ONE (10:37)
[2023-02-15] MEDS ORDERED: PROPOFOL 10 MG/ML 20 ML VIAL IV ONE (11:10)
--- NOTE | 2023-02-15 11:23 | P.GSHP ---
History of Present Illness H&P Date: 02/15/23 Chief Complaint: Rectal bleeding 42-year-old female here for colonoscopy. She had a colonoscopy 5 years ago and had colon polyps at the time. Was having rectal bleeding prior to that. Apparently after polypectomy the bleeding stopped. Recently she started having bleeding again. Family history of colon cancer in her grandfather and colon polyps in her mother. Past Medical History Past Medical History: Hypertension Additional Past Medical History / Comment(s): back pain pain and sciatica, migraines, irritable bowel syndrome, stress urinary incontinence- improved after surgery 09/13/22. , History of Any Multi-Drug Resistant Organisms: Unobtainable Past Surgical History: Breast Surgery, Ear Surgery, Hernia Repair, Hysterectomy, Tubal Ligation Additional Past Surgical History / Comment(s): breast reduction, tubes in ears, umbilical hernia, partial hysterectomy and removal of one clip from tubal that migrated to bladder. other clip migrated to lower back unable to retrieve, PAIN CLINIC PROCEDURES Past Anesthesia/Blood Transfusion Reactions: Postoperative Nausea & Vomiting (PONV) Additional Past Anesthesia/Blood Transfusion Reaction / Comment(s): no blood transfusions Smoking Status: Former smoker - Past Family History Father Family Medical History: Cancer Mother Additional Family Medical History / Comment(s): alzheimer Medications and Allergies Home Medications Medication Instructions Recorded Confirmed Type DULoxetine HCL [Cymbalta] 120 mg PO QAM 09/07/22 02/15/23 History Ibuprofen [Motrin Ib] 600 mg PO Q8H PRN 09/07/22 02/15/23 History Pregabalin [Lyrica] 50 mg PO TID 10/26/22 02/15/23 History amLODIPine [Norvasc] 10 mg PO DAILY 01/20/23 02/15/23 History Allergies Allergy/AdvReac Type Severity Reaction Status Date / Time Penicillins Allergy Rash/Hives Verified 02/15/23 10:34 fentanyl AdvReac Vomiting Verified 02/15/23 10:34 Surgical - Exam Vital Signs Temp Pulse Resp BP Pulse Ox 97.6 F 82 16 124/69 97 02/15/23 10:32 02/15/23 10:32 02/15/23 10:32 02/15/23 10:32 02/15/23 10:32 Physical exam: General: Well-developed, well-nourished HEENT: Normocephalic, sclerae nonicteric Abdomen: Nontender, nondistended Extremities: No edema Neuro: Alert and oriented Assessment and Plan (1) GI bleed Narrative/Plan: Will proceed with colonoscopy at this time. Current Visit: Yes Status: Acute Code(s): K92.2 - GASTROINTESTINAL HEMORRHAGE, UNSPECIFIED SNOMED Code(s): 98359757
--- NOTE | 2023-02-15 11:32 | P.PCN ---
Date of Procedure: 02/15/23 Procedure(s) Performed: PREOPERATIVE DIAGNOSIS: Rectal bleeding, history of polyps POSTOPERATIVE DIAGNOSIS: Small hemorrhoids PROCEDURE: Colonoscopy ANESTHESIA: MAC SURGEON: Jay Chadwick M.D. SPECIMENS: None ENDOSCOPIC PROCEDURE: The patient was placed on the endoscopy table in the left decubitus position. The Olympus colonoscope was inserted into the anus and passed under direct visualization to the base of the cecum. The appendiceal orifice was visualized. From that point the scope was slowly withdrawn inspecting all surfaces carefully. There were no neoplastic inflammatory or polypoid lesions throughout the cecum, ascending, transverse, descending, sigmoid and rectum. There was no visible diverticulosis noted. Small hemorrhoids were noted on digital rectal examination and retroflexion. These were both internal and external. No evidence of recent or active bleeding. The patient was taken to the recovery room in stable condition per anesthesia guidelines. RECOMMENDATIONS: Increase fiber. Monitor for bleeding. Repeat colonoscopy 5 years.
[2023-02-15 11:54] VITALS: BP 106/74; PULSE 82
== END 2023-02-15 12:16 | disposition home or self-care (01) ==
LOC: ORWHC2ENDO 10:01
PROVIDERS: ATTEND Surgery
DX: K64.8 Other hemorrhoids (principal); K58.9 Irritable bowel syndrome, unspecified; Z98.890 Other specified postprocedural states; Z80.0 Family history of malignant neoplasm of digestive organs; I10 Essential (primary) hypertension; G43.909 Migraine, unspecified, not intractable, without status migrainosus; F41.9 Anxiety disorder, unspecified; F32.A Depression, unspecified; Z87.19 Personal history of other diseases of the digestive system; Z87.891 Personal history of nicotine dependence; Z79.899 Other long term (current) drug therapy; Z79.1 Long term (current) use of non-steroidal anti-inflammatories (NSAID); Z88.0 Allergy status to penicillin; Z88.5 Allergy status to narcotic agent
CPT/HCPCS: 45378; J2405; J2704

== ENCOUNTER → 2023-03-10 | Outpatient (CLI) | payer BC ==
[2023-03-10 08:28] VITALS: BP 131/70; PULSE 95; RESP 16; TEMP 97.9
--- NOTE | 2023-03-10 14:02 | P.PAINPG ---
PQRS Measure Charge Sheet Comment: A 42 yr old female with a history of severe and chronic LBP secondary to lumbar DDD and spondylosis with facet arthropathy without myelopathy presents today for evaluation s/p R RFA L3-L5. Pt states she experienced 100% pain relief s/p procedure. Pain level is provoked at 0/10 in intensity. Pain is alleviated with injections, PT x 6 wks in 2021, chiropractic treatments semi monthly since February 2022, heat, meds, repositioning and rest. Interventional pain procedures completed include R RFA L3-L5 Patient is currently on Ibu Patient denies any side effects of the medication(s), denies excessive drowsiness or sleepiness, denies suicidal ideation and reports that the current pain medication is helping to control the pain and improve activities of daily living. Patient denies any motor or sensory deficits. Patient denies any fever or night sweats, denies any change in the bowel movements or urination. Physical Examination: -Constitutional: Cooperative. Not in acute distress . - Neurologic: Cranial nerve II to XII intact. No focal neurological deficits. - Psychatric: Alert & oriented x 3. Matching mood & appropriate affect. Judgment and insight intact. - Musculoskeletal: Cervical spine: Muscle bulk/ tone/ strength in the bilateral upper extremities normal Vertebral body tenderness to palpation over Spurling test positive Distraction test positive Facet loading test positive TTP Thoracic spine Muscle bulk / tone/ strength in the bilateral paraspinal muscles normal Vertebral body tender to palpation over Facet loading test positive TTP Lumbar spine: Motor bulk/ tone/ strength lower extremities , thigh and legs : 5/5 Deep tendon reflexes : Normal Knee Jerk. Normal Ankle Jerk . Vertebral body tenderness to palpation over Lumbar Facet Loading Test Straight Leg Raise: positive at 30 degrees right side/ left side Gaenslen's Test positive Sacral spine : Severe tenderness over the Sacroiliac joint: right side / left side Range of motion: Flexion of the lumbar spine <60 degrees Range of motion: Extension of the lumbar spine <20 degrees Gaenslen's Test positive right side / left side Vanessa test: positive right side / left side Thigh Thrust Test positive right side / left side Sacral Thrust Test positive right side / left side Assessment and plan: Chronic LBP secondary to lumbar DDD, spondylosis with facet arthropathy without myelopathy Pt exhibited sufficient and satisfactory pain relief. May return to the clinic on an as needed basis. All questions answered. I have spent less than 30 minutes on patient care today. Dr Allen was available by phone for the evaluation of this patient. The time was used to review the medical records including relevant urine studies and Prescription history (MAPs), review of the available imaging, evaluation and examination of the patient, coordination of care with the medical staff and if applicable referring physicians, as well as creation of the medical record PQRS Narrative: Hx Alcohol Use (MH) No Home Medications: Ambulatory Orders DULoxetine HCL [Cymbalta] 120 mg PO QAM 09/07/22 Ibuprofen [Motrin Ib] 600 mg PO Q8H PRN 09/07/22 Pregabalin [Lyrica] 50 mg PO TID 10/26/22 amLODIPine [Norvasc] 10 mg PO DAILY 01/20/23 Controlled Substance Measures - Controlled Substance Measures Is patient prescribed a controlled substance at discharge?: No
== END ==
LOC: PNWHC3 08:03
PROVIDERS: ATTEND Specialist
DX: M51.36 Other intervertebral disc degeneration, lumbar region (principal); M47.816 Spondylosis without myelopathy or radiculopathy, lumbar region; G89.29 Other chronic pain; Z88.0 Allergy status to penicillin; Z88.8 Allergy status to other drugs, medicaments and biological substances
CPT/HCPCS: 99211

== ENCOUNTER → 2024-08-20 | Outpatient (CLI) | payer BC ==
--- NOTE | 2024-08-27 07:10 | MM ---
Reason for Exam: Screening (asymptomatic). Last screening mammogram was performed 12 month(s) ago. Patient History: Menarche at age 11. First Full-Term at age 15. Hysterectomy at age 42. 06/15/2022, Bilateral Reduction. Risk Values: Isabel 5 year model risk: 0.6%. NCI Lifetime model risk: 7.0%. Prior Study Comparison: 06/01/2021 Bilateral Screening Mammogram, Unknown. 08/17/2023 Bilateral Screening Mammogram, Unknown. Tissue Density: There are scattered areas of fibroglandular density. Findings: Analyzed By CAD. Right breast: There is no suspicious group of microcalcifications or new suspicious mass. Left breast: There is no suspicious group of microcalcifications or new suspicious mass. Overall Assessment: Negative, BI-RAD 1 Management: Screening Mammogram of both breasts in [address] [facility] will attempt to contact patient to return for supplemental views and ultrasound if indicated. Patient should continue monthly self-breast exams. A clinical breast exam by your physician is recommended on an annual basis. This exam should not preclude additional follow-up of suspicious palpable abnormalities. Note on Isabel scores and lifetime risk: 1. A Isabel score greater than 3% is considered moderate risk. If this is the case, consider specialist referral to assess eligibility for a risk reducing agent. 2. If overall lifetime risk for the development of breast cancer is 20% or higher, the patient may qualify for future screening with alternating mammogram and breast MRI. [facility], , 08/27/2024 7:07 AM. Electronically signed and approved by: Alberto Doss DO
== END | disposition home or self-care (01) ==
LOC: RADMAMWWP 08-13 09:00
PROVIDERS: ATTEND Family Medicine
DX: Z12.31 Encounter for screening mammogram for malignant neoplasm of breast (principal); R92.323 Mammographic fibroglandular density, bilateral breasts
CPT/HCPCS: 77063; 77067